=== PATIENT | female | born 1985 | race Caucasian/White ===

== ENCOUNTER 2019-09-01 20:08 | Emergency (ER) | payer BC ==
[~2019-09-01] VITALS: Ht 170.2 cm; Wt 70.5 kg
[2019-09-01 20:15] VITALS: BP 116/82
[2019-09-01] MEDS ORDERED: HYDROcodone/acetaminophen 5mg/325mg tablet PO ONE (21:45)
[2019-09-01] MEDS ORDERED: HYDR-3965 PO (22:26)
--- NOTE | 2019-09-01 22:38 | NUR ---
When attempting to discharge the patient to home, the patient expressed concern about hitting her head and reports it was not evaluated by the provider. YADI Torres notified of the concern regarding the head injury. Pt reports "it was just a tap."
== END 2019-09-01 23:05 | disposition home or self-care (01) ==
LOC: ER 20:09
DX: S52.125A Nondisplaced fracture of head of left radius, initial encounter for closed fracture (principal); M25.532 Pain in left wrist; Z79.899 Other long term (current) drug therapy; W01.0XXA Fall on same level from slipping, tripping and stumbling without subsequent striking against object, initial encounter; Y93.89 Activity, other specified; Y92.89 Other specified places as the place of occurrence of the external cause; Y99.8 Other external cause status
CPT/HCPCS: 29125; 73080; 73110; 99283